=== PATIENT | male | born 1960 | race Caucasian/White ===

== ENCOUNTER 2018-09-07 12:48 | Day surgery (SDC) | payer BC ==
[~2018-09-07] VITALS: Ht 188 cm; Wt 85.9 kg
[~2018-09-07 12:48] MED LIST: LIDOCAINE-MPF 1%, 5ML ONE; VISIPAQUE 270 MG/ML, 50ML BOTTLE ONE
[2018-09-07] MEDS ORDERED: CEFAZOLIN 2,000 MG in SODIUM CHLORIDE 0.9% 50 ML IV SCH (13:30)
[2018-09-07] MEDS ORDERED: PLEASE ENTER HEIGHT AND WEIGHT MC SCH (13:30)
[2018-09-07] MEDS ORDERED: PLEASE ENTER ALLERGIES MC SCH (13:30)
[2018-09-07] MEDS ORDERED: SODIUM CHLORIDE 0.9% 1,000 ML IV SCH (13:34)
[2018-09-07 14:02] VITALS: BP 135/88
[2018-09-07] MEDS ORDERED: FENTANYL PF 100 MCG/2ML ONE ×2 (14:09)
[2018-09-07] MEDS ORDERED: GABA600T7 PO (14:09)
[2018-09-07] MEDS ORDERED: AMLO1TAB86 PO (14:09)
[2018-09-07] MEDS ORDERED: MIDAZOLAM 1 MG/ML, 5ML ONE (14:09)
[2018-09-07] MEDS ORDERED: NITROGLYCERIN 5 MG/ML, 10ML ONE (14:10)
[2018-09-07] MEDS ORDERED: PROTAMINE SULFATE 10 MG/ML, 25ML ONE (14:10)
[2018-09-07] MEDS ORDERED: FLUMAZENIL 0.1 MG/1 ML, 5ML ONE (14:10)
[2018-09-07] MEDS ORDERED: NALOXONE 1 MG/ML, 2ML ONE (14:10)
[2018-09-07] MEDS ORDERED: HEPARIN 1,000 UNITS/ML, 10ML ONE (14:10)
[2018-09-07 14:14] LABS: BASOPHILS # (AUTO) 0.05 x10^3/uL (0-0.1); BASOPHILS % (AUTO) 1 % (0-1); EOSINOPHILS # (AUTO) 0.22 x10^3/uL (0-0.4); EOSINOPHILS % (AUTO) 2 % (1-7); LYMPHOCYTES # (AUTO) 3.36 x10^3/uL (1-3.4); LYMPHOCYTES % (AUTO) 36 % (22-44); MD NO; MEAN CORPUSCULAR HEMOGLOBIN 32.8 pg (27.5-34.5); MEAN CORPUSCULAR HGB CONC 33.7 g/dL (33.2-36.2); MEAN CORPUSCULAR VOLUME 97.4 fL (81-97); MEAN PLATELET VOLUME 7.7 fL (7.4-10.4); MONOCYTES # (AUTO) 0.67 x10^3/uL (0.2-0.8); MONOCYTES % (AUTO) 7 % (2-9); NEUTROPHILS # (AUTO) 4.96 x10^3/uL (1.8-6.8); NEUTROPHILS % (AUTO) 54 % (42-75); PLATELET COUNT 306 x10^3/uL (130-400); RED BLOOD COUNT 4.99 x10^6/uL (4.38-5.82); RED CELL DISTRIBUTION WIDTH 12.9 % (9.4-14.8)
[2018-09-07 14:25] LABS: ANION GAP 6 mmol/L (5-15); CALCIUM 8.8 mg/dL (8.5-10.1); CHLORIDE 110 mmol/L (98-107)
[2018-09-07 14:28] LABS: CREATININE 0.97 mg/dL (0.7-1.3)
[2018-09-07] MEDS ORDERED: CEFAZOLIN PMX 2GM/100ML 100 ML IV ONE (14:30)
== END 2018-09-07 16:15 | disposition home or self-care (01) ==
LOC: SDC 12:48
PROVIDERS: ATTEND Surgery
DX: I70.212 Atherosclerosis of native arteries of extremities with intermittent claudication, left leg (principal); I70.0 Atherosclerosis of aorta; I10 Essential (primary) hypertension; F17.210 Nicotine dependence, cigarettes, uncomplicated; Z79.899 Other long term (current) drug therapy; Z82.49 Family history of ischemic heart disease and other diseases of the circulatory system
CPT/HCPCS: 36247; 36415; 75625; 75716; 80048; 85025; 99156; 99157; C1751; C1760; C1769; C1894; J0690; J1644; J2250; J3010; J7030; Q9966; 36200; J2720; J2310